=== PATIENT | female | born 1950 | race Caucasian/White ===

== ENCOUNTER 2020-06-16 18:17 | Emergency (ER) | payer MEDICARE ==
[2020-06-16 18:42] VITALS: RESP 18; TEMP 98.3
[2020-06-16] MEDS ORDERED: ACETAMINOPHEN TAB 500 MG TAB PO STA (19:29)
[2020-06-16] MEDS ORDERED: SODIUM CHLORIDE 0.9% 1,000 ML IV ONE (19:29)
--- NOTE | 2020-06-16 19:57 | ED ---
General Adult HPI - General Source: patient Mode of arrival: wheelchair Limitations: physical limitation <Lenka He - Last Filed: 06/17/20 01:59> <Karli Kennedy - Last Filed: 06/17/20 15:57> - General Chief complaint: Skin/Abscess/Foreign Body Stated complaint: Swollen face Time Seen by Provider: 06/16/20 19:02 - History of Present Illness Initial comments: 69-year-old female patient presents to the emergency department today for evaluation of facial swelling and headache. Patient states that she woke this morning and had to pry her eyes open. States that her eyes were swollen shut. She states that she is having some discomfort over the nose and that is reporting a headache. Patient states that the headache feels as though she struck her head on the corner of a cupboard, but she denies injury. Denies any blurred or double vision. Patient states that for the last couple of days she has been feeling unwell with symptoms including chills, nausea, and a couple episodes of diarrhea. She denies any documented fevers. Denies history of similar symptoms. Denies any new exposures. Denies taking any medication for her symptoms. Patient denies any recent rash, cough, shortness of breath, chest pain, abdominal pain, vomiting, constipation, back pain, numbness, tingling, dizziness, weakness, hematuria, dysuria, urinary urgency, urinary frequency, or any other complaints. (Lenka He) - Related Data Previous Rx's Medication Instructions Recorded Cephalexin [Keflex] 500 mg PO Q6HR #40 cap 06/16/20 Cephalexin [Keflex] 500 mg PO Q6HR #40 cap 06/16/20 Famotidine [Pepcid] 20 mg PO DAILY #5 tablet 06/16/20 Allergies Allergy/AdvReac Type Severity Reaction Status Date / Time No Known Allergies Allergy Verified 06/16/20 19:52 Review of Systems ROS Other: All systems not noted in ROS Statement are negative. <Lenka He - Last Filed: 06/17/20 01:59> ROS Other: All systems not noted in ROS Statement are negative. <Karli Kennedy - Last Filed: 06/17/20 15:57> ROS Statement: Those systems with pertinent positive or pertinent negative responses have been documented in the HPI. Past Medical History Past Medical History: Coronary Artery Disease (CAD), Hypertension, Thyroid Disorder History of Any Multi-Drug Resistant Organisms: None Reported Past Surgical History: Section Past Psychological History: Depression Smoking Status: Current every day smoker Past Alcohol Use History: None Reported Past Drug Use History: None Reported <Lenka He - Last Filed: 06/17/20 01:59> General Exam Limitations: physical limitation General appearance: alert, in no apparent distress, other (This is a well- developed, well-nourished adult female patient in no acute distress. Vital signs upon presentation are temperature 99.8F oral, pulse 98, respirations 18, blood pressure 119/84, pulse ox 95% on room air.) Eye exam: Present: PERRL, EOMI, periorbital swelling (Bilateral), other (There is bilateral periorbital edema with overlying erythema. There is no conjunctival injection or eye drainage noted. No pain with extraocular movements.). Absent: normal appearance, scleral icterus, conjunctival injection ENT exam: Present: normal oropharynx, mucous membranes moist, TM's normal bilaterally, other (Patient has swelling overlying the nose, there is tenderness especially over the nasal bone. No nasal drainage or congestion noted.). Absent: normal exam Respiratory exam: Present: normal lung sounds bilaterally. Absent: respiratory distress, wheezes, rales, rhonchi, stridor Cardiovascular Exam: Present: regular rate, normal rhythm, normal heart sounds. Absent: systolic murmur, diastolic murmur, rubs, gallop, clicks Neurological exam: Present: alert, oriented X3, CN II-XII intact Psychiatric exam: Present: normal affect, normal mood Skin exam: Present: warm, dry, intact, normal color. Absent: rash <Lenka He - Last Filed: 06/17/20 01:59> Course Vital Signs 06/16/20 06/16/20 06/16/20 18:37 21:24 22:14 Temperature 98.3 F 98.3 F Pulse Rate 98 86 86 Respiratory 18 18 18 Rate Blood Pressure 119/84 142/60 142/60 O2 Sat by Pulse 95 97 97 Oximetry Medical Decision Making - Lab Data Result diagrams: 06/16/20 20:05 06/16/20 20:05 - Radiology Data Radiology results: report reviewed, image reviewed <Lenka He - Last Filed: 06/17/20 01:59> - Lab Data Result diagrams: 06/16/20 20:05 06/16/20 20:05 <Karli Kennedy - Last Filed: 06/17/20 15:57> - Medical Decision Making 69-year-old female patient presents to the emergency department today for evaluation of bilateral periorbital swelling and headache. Patient did have temperature elevated at 99.8F oral. My attending Dr. Kennedy was in to evaluate the patient, we did discuss and agree upon diagnostic imaging. Labs reviewed and did reveal mildly elevated white blood cell count. Remainder of labs are unremarkable. CT brain and sinuses was obtained and was negative for any acute abnormalities. We will treat patient with antibiotics for possible preseptal cellulitis we will also treat with antihistamines for possible ALLERGIC swelling. She is instructed to follow-up with her primary care physician for recheck tomorrow. Return parameters were discussed in detail. She verbalizes understanding and agrees with this plan. (Lenka He) I was available for consultation in the emergency department. The history and physical exam were done by the midlevel provider. I was consulted for this patients care. I reviewed the case with the midlevel provider and based on their presentation of the patient, I agree with the assessment, medical decision making and plan of care as documented. I evaluated the patient myself. Imaging was recommended as patient complains of nasal pain and swelling. Chart was dictated using [employer] dictation software. Attempts were made to correct any dictation errors however some typographical errors may persist. Patient was seen during a national state of emergency due to the Covid-19 pandemic. (Karli Kennedy) - Lab Data Lab Results 06/16/20 06/16/20 06/16/20 Range/Units 20:05 20:05 20:05 WBC 10.8 H (3.8-10.6) k/uL RBC 5.32 (3.80-5.40) m/uL Hgb 15.6 (11.4-16.0) gm/dL Hct 47.7 H (34.0-46.0) % MCV 89.6 (80.0-100.0) fL MCH 29.3 (25.0-35.0) pg MCHC 32.7 (31.0-37.0) g/dL RDW 12.8 (11.5-15.5) % Plt Count 148 L (150-450) k/uL Neutrophils % 66 % Lymphocytes % 19 % Monocytes % 10 % Eosinophils % 1 % Basophils % 1 % Neutrophils # 7.1 (1.3-7.7) k/uL Lymphocytes # 2.0 (1.0-4.8) k/uL Monocytes # 1.0 (0-1.0) k/uL Eosinophils # 0.1 (0-0.7) k/uL Basophils # 0.2 (0-0.2) k/uL Sodium 136 L (137-145) mmol/L Potassium 4.4 (3.5-5.1) mmol/L Chloride 101 (98-107) mmol/L Carbon Dioxide 28 (22-30) mmol/L Anion Gap 7 mmol/L BUN 10 (7-17) mg/dL Creatinine 0.55 (0.52-1.04) mg/dL Est GFR (CKD-EPI)AfAm >90 (>60 ml/min/1.73 sqM) Est GFR (CKD-EPI)NonAf >90 (>60 ml/min/1.73 sqM) Glucose 99 (74-99) mg/dL Plasma Lactic Acid Mateo 0.9 (0.7-2.0) mmol/L Calcium 9.3 (8.4-10.2) mg/dL Total Bilirubin 1.0 (0.2-1.3) mg/dL AST 20 (14-36) U/L ALT 10 (4-34) U/L Alkaline Phosphatase 56 (38-126) U/L Total Protein 6.9 (6.3-8.2) g/dL Albumin 4.2 (3.5-5.0) g/dL - Radiology Data CT sinus with contrast was obtained. Report is reviewed in its entirety. Impression by Dr. Chanel shows minimal right-sided soft tissue swelling. Otherwise negative exam. Normal sinuses. CT brain without contrast was obtained. Report was reviewed in its entirety. Impression by Dr. Chanel shows negative unenhanced head computed tomography scan. (Lenka He) Disposition Is patient prescribed a controlled substance at d/c from ED?: No Time of Disposition: 21:53 <Lenka He - Last Filed: 06/17/20 01:59> <Karli Kennedy - Last Filed: 06/17/20 15:57> Clinical Impression: Preseptal cellulitis Disposition: HOME SELF-CARE Condition: Good Instructions (If sedation given, give patient instructions): Cellulitis (ED), Periorbital Cellulitis in Adults (ED) Additional Instructions: Complete antibiotic prescription in full. Follow up with your primary care physician for recheck in 1-2 days. Return to the emergency department for any new, worsening, or concerning symptoms. Prescriptions: Cephalexin [Keflex] 500 mg PO Q6HR #40 cap Cephalexin [Keflex] 500 mg PO Q6HR #40 cap Famotidine [Pepcid] 20 mg PO DAILY #5 tablet Referrals: Eugenia Jason MD [Primary Care Provider] - 1-2 days
[2020-06-16 20:19] LABS: Basophils # (A) 0.2 k/uL (0-0.2); Basophils % (A) 1 %; Eosinophils # (A) 0.1 k/uL (0-0.7); Eosinophils % (A) 1 %; HCT 47.7 % (34.0-46.0); HGB 15.6 gm/dL (11.4-16.0); Lymphocytes % (A) 19 %; MCH 29.3 pg (25.0-35.0); MCHC 32.7 g/dL (31.0-37.0); MCV 89.6 fL (80.0-100.0); Mean Platelet Volume 8.7; Monocytes % (A) 10 %; Neutrophils # (A) 7.1 k/uL (1.3-7.7); Neutrophils % (A) 66 %; Platelet Count 148 k/uL (150-450); RBC 5.32 m/uL (3.80-5.40); RDW 12.8 % (11.5-15.5); WBC 10.8 k/uL (3.8-10.6)
[2020-06-16 20:31] LABS: ALT 10 U/L (4-34); AST 20 U/L (14-36); African American GFR (CKD) >90 (>60 ml/min/1.73 sqM); Albumin 4.2 g/dL (3.5-5.0); Alkaline Phosphatase 56 U/L (38-126); Anion Gap 7 mmol/L; Blood Urea Nitrogen 10 mg/dL (7-17); Calcium 9.3 mg/dL (8.4-10.2); Carbon Dioxide 28 mmol/L (22-30); Chloride 101 mmol/L (98-107); Glucose 99 mg/dL (74-99); Non-African American GFR(CKD) >90 (>60 ml/min/1.73 sqM); Potassium 4.4 mmol/L (3.5-5.1); Sodium 136 mmol/L (137-145); Total Protein 6.9 g/dL (6.3-8.2)
--- NOTE | 2020-06-16 21:09 | CT ---
EXAMINATION TYPE: CT brain wo con DATE OF EXAM: 06/16/2020 COMPARISON: None HISTORY: Headache and right sided facial swelling. CT DLP: 1151.4 mGycm Automated exposure control for dose reduction was used. Ventricles have normal size. There is no mass effect nor midline shift. There is no sign of intracran ial hemorrhage. There is no evidence of cerebral edema. Calvarium is intact. IMPRESSION: Negative unenhanced head CT scan.
--- NOTE | 2020-06-16 21:12 | CT ---
EXAMINATION TYPE: CT sinus w con DATE OF EXAM: 06/16/2020 COMPARISON: None HISTORY: Headache and right sided facial swelling. CT DLP: 373.9 mGycm Automated exposure control for dose reduction was used. CONTRAST: Performed with IV Contrast, patient injected with 100ml mL of Isovue 300. The orbital margins are intact. There is no evidence of retro-orbital mass. Zygomatic arches appear n ormal. Nasal bone is intact. There is no evidence of a blowout fracture. There is bilateral patency o f the ostiomeatal complex. There is fairly normal aeration of the paranasal sinuses. There is normal aeration of the mastoid sinuses. Maxilla is intact. There is no pathologic enhancement. There is mini mal right lateral periorbital soft tissue swelling. IMPRESSION: Minimal right-sided soft tissue swelling. Otherwise negative exam. Normal sinuses.
[2020-06-16 21:26] VITALS: BP 142/60; PULSE 86
[2020-06-16] MEDS ORDERED: CEPHALEXIN 500MG STARTER PACK 4 CAP BTL PO STA (21:50)
[2020-06-16] MEDS ORDERED: FAMOTIDINE 20 MG TAB PO STA (21:50)
== END 2020-06-16 22:15 | disposition home or self-care (01) ==
LOC: EC 18:17
DX: L03.213 Periorbital cellulitis (principal); F17.200 Nicotine dependence, unspecified, uncomplicated; R51 Headache
CPT/HCPCS: 36415; 80053; 83605; 85025; 87040; 70450; 70487; 99284; 96360; 96361; Q9967

== ENCOUNTER → 2023-04-16 | Outpatient (CLI) | payer MEDICARE ==
--- NOTE | 2023-04-17 08:18 | US ---
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 Pain with R>L. Thickened toe nails. Hair loss on feet. History of: Smoker: Current Smoker Hypertension: Takes medication Diabetic: No Hyperlipidemia: Yes TIA/CVA: No Previous Vascular Surgery: No CAD: No OR: No Vascular Ulcers: No Claudication: No Gangrene: No Doppler Waveforms: Right: Multiphasic Left: Multiphasic Right Brachial Pressure: 134 Left Brachial Pressure: 126 Ankle-Brachial Indices: Right: 1.0 Left: 1.0 Toe Brachial Indices: Right: 0.5 Left: 0.5 IMPRESSION: Borderline SUJATA indices and abnormal TBI indices suggestive of mild peripheral atherosclerotic disease
== END | disposition home or self-care (01) ==
LOC: RADUSWWP 14:27
PROVIDERS: ATTEND Family Medicine
DX: I70.213 Atherosclerosis of native arteries of extremities with intermittent claudication, bilateral legs (principal)
CPT/HCPCS: 93922

== ENCOUNTER → 2023-12-11 | Outpatient (CLI) | payer MEDICARE ==
--- NOTE | 2023-12-11 16:12 | US ---
EXAMINATION TYPE: US arterial LE multi level DATE OF EXAM: 12/11/2023 2:20 PM CLINICAL INDICATION: Female, 73 years old with history of I87.2 VENOUS INSUFFICIENCY (CHRONIC) (PERIP HERAL); History of: Smoker: Current Hypertension: Yes Diabetic: No Hyperlipidemia: Yes TIA/CVA: No Previous Vascular Surgery: NO CAD: No HI: No Vascular Ulcers: No Claudication: Yes Gangrene: No Right Brachial Pressure: 111 Left Brachial Pressure: 119 Ankle-Brachial Indices: Right: 0.85 Left: 0.97 Patient unable to straighten right leg due to knee and hip pain. Recordings may be inaccurate within the right leg due to non-proper positioning. IMPRESSION: Similar borderline SUJATA indices and abnormal TBI indices suggestive of mild peripheral ath erosclerotic disease
== END | disposition home or self-care (01) ==
LOC: RADUSWWP 13:43
PROVIDERS: ATTEND Family Medicine
DX: I87.2 Venous insufficiency (chronic) (peripheral) (principal)
CPT/HCPCS: 93923

== ENCOUNTER 2025-01-16 16:32 | Observation (INO) | payer MEDICARE ==
--- NOTE | 2025-01-16 16:58 | ED ---
General Adult HPI - General Chief complaint: Weakness Stated complaint: Possible UTI Time Seen by Provider: 01/16/25 16:35 Source: patient, EMS Mode of arrival: EMS Limitations: no limitations - History of Present Illness Initial comments: This patient is 74-year-old woman brought to have evaluation of weakness and confusion. The patient states that she had been well yesterday. She states that starting today she just felt weak and tired. She wanted to go to the bathroom but she states that her legs were too weak to support her. She notes that it was both legs. She denies focal weakness. She was talking to her brother who had her call her son and 1 family came and checked on her they called EMS. Patient was reportedly well when she got up this morning around 8 AM. She is not able to characterize any other symptoms. She states that she feels confused. She has not noted fevers. She denies chest pain and dyspnea. She does have occasional cough but that is chronic for her -: hour(s) Severity scale (1-10): 0 Consistency: constant Improves with: none Worsens with: none Associated Symptoms: confusion, weakness Treatments Prior to Arrival: none - Related Data Home Medications Medication Instructions Recorded Confirmed Albuterol Inhaler [Ventolin Hfa 2 puff INHALATION RT-QID PRN 01/16/25 01/16/25 Inhaler] Albuterol Nebulized [Ventolin 2.5 mg INHALATION RT-QID PRN 01/16/25 01/16/25 Nebulized] Escitalopram [Lexapro] 5 mg PO DAILY 01/16/25 01/16/25 Fluticasone/Umeclidin/Vilanter 1 puff INHALATION RT-DAILY 01/16/25 01/16/25 [Trelegy Ellipta 200-62.5-25] Levothyroxine Sodium [Synthroid] 150 mcg PO SUMOTUTHFRSA 01/16/25 01/16/25 Metoprolol Succinate (ER) [Toprol 25 mg PO DAILY 01/16/25 01/16/25 Xl] Multivitamins, Thera [Multivitamin 1 tab PO DAILY 01/16/25 01/16/25 (formulary)] Pravastatin Sodium [Pravachol] 80 mg PO DAILY 01/16/25 01/16/25 Allergies Allergy/AdvReac Type Severity Reaction Status Date / Time No Known Allergies Allergy Verified 01/16/25 20:09 Review of Systems ROS Statement: Those systems with pertinent positive or pertinent negative responses have been documented in the HPI. ROS Other: All systems not noted in ROS Statement are negative. Constitutional: Reports: weakness. Denies: fever, chills Eyes: Denies: eye pain, vision change ENT: Denies: congestion Respiratory: Denies: cough, dyspnea, hemoptysis Cardiovascular: Denies: chest pain, palpitations, orthopnea, edema, syncope Gastrointestinal: Denies: abdominal pain, nausea, vomiting, diarrhea Genitourinary: Denies: dysuria, hematuria Musculoskeletal: Denies: back pain Skin: Denies: as per HPI Neurological: Reports: confusion. Denies: headache, weakness, numbness Psychiatric: Reports: anxiety Past Medical History Past Medical History: Coronary Artery Disease (CAD), Hypertension, Thyroid Disorder History of Any Multi-Drug Resistant Organisms: None Reported Past Surgical History: Unable to Obtain, Section Past Psychological History: Depression Smoking Status: Current every day smoker Past Alcohol Use History: None Reported Past Drug Use History: None Reported General Exam Limitations: no limitations General appearance: alert, in no apparent distress, anxious Head exam: Present: atraumatic, normocephalic Eye exam: Present: normal appearance. Absent: scleral icterus, conjunctival injection ENT exam: Present: mucous membranes dry Neck exam: Present: normal inspection Respiratory exam: Present: wheezes, prolonged expiratory. Absent: rales, rhonchi, stridor, accessory muscle use Cardiovascular Exam: Present: regular rate, normal rhythm, normal heart sounds. Absent: systolic murmur, diastolic murmur, rubs, gallop GI/Abdominal exam: Present: soft. Absent: distended, tenderness, guarding, rebound, rigid, mass Extremities exam: Present: normal inspection, normal capillary refill. Absent: pedal edema, calf tenderness Back exam: Present: normal inspection. Absent: CVA tenderness (R), CVA tenderness (L) Neurological exam: Present: alert, CN II-XII intact. Absent: oriented X3 (Patient is disoriented to date), motor sensory deficit Skin exam: Present: warm, dry, intact, normal color. Absent: rash Course Vital Signs 01/16/25 01/16/25 16:35 19:16 Temperature 99.4 F Pulse Rate 100 86 Respiratory 20 18 Rate Blood Pressure 127/82 110/70 O2 Sat by Pulse 92 L 97 Oximetry EKG Findings - EKG Comments: EKG Findings:: Old septal infarct based on Q waves leads V1 V2. - EKG Results: EKG: interpreted by HOWIE, sinus rhythm (Rate 190 bpm), normal axis, normal ST/T Medical Decision Making - Lab Data Result diagrams: 01/16/25 16:53 01/16/25 16:53 Lab Results 01/16/25 01/16/25 01/16/25 Range/Units 16:53 16:53 16:53 WBC 11.42 H (4.50-10.00) 10*3/uL RBC 4.87 (4.10-5.20) 10*6/uL Hgb 15.1 H (12.0-15.0) g/dL Hct 44.8 (37.2-46.3) % MCV 92.0 (80.0-97.0) fL MCH 31.0 (27.0-32.0) pg MCHC 33.7 (32.0-37.0) g/dL Plt Count 149 (140-440) 10*3/uL MPV 11.2 (9.5-12.2) fL Immature Gran % (Auto) 0.4 % Neutrophils % 89.2 % Lymphocytes % 4.4 % Monocytes % 5.2 % Eosinophils % 0.4 % Basophils % 0.4 % Immature Gran # 0.05 H (0.00-0.04) 10*3/uL Neutrophils # 10.20 H (1.80-7.70) 10*3/uL Lymphocytes # 0.50 L (0.90-5.00) 10*3/uL Monocytes # 0.59 (0.20-1.00) 10*3/uL Eosinophils # 0.04 (0.04-0.35) 10*3/uL Basophils # 0.04 (0.00-0.10) 10*3/uL PT 10.3 (10.0-12.5) sec INR 0.9 (<1.2) APTT 20.7 L (22.0-30.0) sec VBG pH (7.31-7.41) VBG pCO2 (37-51) mmHg VBG HCO3 (24-28) mmol/L Sodium (137-145) mmol/L Potassium (3.5-5.1) mmol/L Chloride (98-107) mmol/L Carbon Dioxide (22-30) mmol/L Anion Gap mmol/L BUN (7-17) mg/dL Creatinine (0.52-1.04) mg/dL Est GFR (CKD-EPI)AfAm (>60 ml/min/1.73 sqM) Est GFR (CKD-EPI)NonAf (>60 ml/min/1.73 sqM) Glucose (74-99) mg/dL Plasma Lactic Acid Mateo (0.7-2.0) mmol/L Calcium (8.4-10.2) mg/dL Magnesium (1.6-2.3) mg/dL Total Bilirubin (0.2-1.3) mg/dL AST (14-36) U/L ALT (4-34) U/L Alkaline Phosphatase (38-126) U/L Troponin I (0.000-0.034) ng/mL Total Protein (6.3-8.2) g/dL Albumin (3.5-5.0) g/dL TSH (0.465-4.680) mIU/L Urine Color Light Yellow Urine Appearance Clear (Clear) Urine pH 7.0 (5.0-8.0) Ur Specific Ord 1.013 (1.001-1.035) Urine Protein Negative (Negative) Urine Glucose (UA) Negative (Negative) Urine Ketones Trace H (Negative) Urine Blood Negative (Negative) Urine Nitrite Positive H (Negative) Urine Bilirubin Negative (Negative) Urine Urobilinogen <2.0 (<2.0) mg/dL Ur Leukocyte Esterase Large H (Negative) Urine RBC <1 (0-5) /hpf Urine WBC 35 H (0-5) /hpf Ur Squamous Epith Cells <1 (0-4) /hpf Urine Bacteria Few H (None) /hpf Urine Mucus Rare H (None) /hpf 01/16/25 01/16/25 01/16/25 Range/Units 16:53 16:53 16:53 WBC (4.50-10.00) 10*3/uL RBC (4.10-5.20) 10*6/uL Hgb (12.0-15.0) g/dL Hct (37.2-46.3) % MCV (80.0-97.0) fL MCH (27.0-32.0) pg MCHC (32.0-37.0) g/dL Plt Count (140-440) 10*3/uL MPV (9.5-12.2) fL Immature Gran % (Auto) % Neutrophils % % Lymphocytes % % Monocytes % % Eosinophils % % Basophils % % Immature Gran # (0.00-0.04) 10*3/uL Neutrophils # (1.80-7.70) 10*3/uL Lymphocytes # (0.90-5.00) 10*3/uL Monocytes # (0.20-1.00) 10*3/uL Eosinophils # (0.04-0.35) 10*3/uL Basophils # (0.00-0.10) 10*3/uL PT (10.0-12.5) sec INR (<1.2) APTT (22.0-30.0) sec VBG pH (7.31-7.41) VBG pCO2 (37-51) mmHg VBG HCO3 (24-28) mmol/L Sodium 136 L (137-145) mmol/L Potassium 4.4 (3.5-5.1) mmol/L Chloride 99 (98-107) mmol/L Carbon Dioxide 28 (22-30) mmol/L Anion Gap 9 mmol/L BUN 11 (7-17) mg/dL Creatinine 0.51 L (0.52-1.04) mg/dL Est GFR (CKD-EPI)AfAm >90 (>60 ml/min/1.73 sqM) Est GFR (CKD-EPI)NonAf >90 (>60 ml/min/1.73 sqM) Glucose 82 (74-99) mg/dL Plasma Lactic Acid Mateo 1.2 (0.7-2.0) mmol/L Calcium 9.4 (8.4-10.2) mg/dL Magnesium 1.7 (1.6-2.3) mg/dL Total Bilirubin 1.1 (0.2-1.3) mg/dL AST 31 (14-36) U/L ALT 17 (4-34) U/L Alkaline Phosphatase 43 (38-126) U/L Troponin I <0.012 (0.000-0.034) ng/mL Total Protein 7.0 (6.3-8.2) g/dL Albumin 4.4 (3.5-5.0) g/dL TSH 1.450 (0.465-4.680) mIU/L Urine Color Urine Appearance (Clear) Urine pH (5.0-8.0) Ur Specific Ord (1.001-1.035) Urine Protein (Negative) Urine Glucose (UA) (Negative) Urine Ketones (Negative) Urine Blood (Negative) Urine Nitrite (Negative) Urine Bilirubin (Negative) Urine Urobilinogen (<2.0) mg/dL Ur Leukocyte Esterase (Negative) Urine RBC (0-5) /hpf Urine WBC (0-5) /hpf Ur Squamous Epith Cells (0-4) /hpf Urine Bacteria (None) /hpf Urine Mucus (None) /hpf 01/16/25 Range/Units 18:50 WBC (4.50-10.00) 10*3/uL RBC (4.10-5.20) 10*6/uL Hgb (12.0-15.0) g/dL Hct (37.2-46.3) % MCV (80.0-97.0) fL MCH (27.0-32.0) pg MCHC (32.0-37.0) g/dL Plt Count (140-440) 10*3/uL MPV (9.5-12.2) fL Immature Gran % (Auto) % Neutrophils % % Lymphocytes % % Monocytes % % Eosinophils % % Basophils % % Immature Gran # (0.00-0.04) 10*3/uL Neutrophils # (1.80-7.70) 10*3/uL Lymphocytes # (0.90-5.00) 10*3/uL Monocytes # (0.20-1.00) 10*3/uL Eosinophils # (0.04-0.35) 10*3/uL Basophils # (0.00-0.10) 10*3/uL PT (10.0-12.5) sec INR (<1.2) APTT (22.0-30.0) sec VBG pH 7.43 H (7.31-7.41) VBG pCO2 43 (37-51) mmHg VBG HCO3 28 (24-28) mmol/L Sodium (137-145) mmol/L Potassium (3.5-5.1) mmol/L Chloride (98-107) mmol/L Carbon Dioxide (22-30) mmol/L Anion Gap mmol/L BUN (7-17) mg/dL Creatinine (0.52-1.04) mg/dL Est GFR (CKD-EPI)AfAm (>60 ml/min/1.73 sqM) Est GFR (CKD-EPI)NonAf (>60 ml/min/1.73 sqM) Glucose (74-99) mg/dL Plasma Lactic Acid Mateo (0.7-2.0) mmol/L Calcium (8.4-10.2) mg/dL Magnesium (1.6-2.3) mg/dL Total Bilirubin (0.2-1.3) mg/dL AST (14-36) U/L ALT (4-34) U/L Alkaline Phosphatase (38-126) U/L Troponin I (0.000-0.034) ng/mL Total Protein (6.3-8.2) g/dL Albumin (3.5-5.0) g/dL TSH (0.465-4.680) mIU/L Urine Color Urine Appearance (Clear) Urine pH (5.0-8.0) Ur Specific Ord (1.001-1.035) Urine Protein (Negative) Urine Glucose (UA) (Negative) Urine Ketones (Negative) Urine Blood (Negative) Urine Nitrite (Negative) Urine Bilirubin (Negative) Urine Urobilinogen (<2.0) mg/dL Ur Leukocyte Esterase (Negative) Urine RBC (0-5) /hpf Urine WBC (0-5) /hpf Ur Squamous Epith Cells (0-4) /hpf Urine Bacteria (None) /hpf Urine Mucus (None) /hpf Disposition Clinical Impression: UTI (urinary tract infection), Generalized weakness Disposition: ADMITTED IP TO THIS HOSP Condition: Fair Is patient prescribed a controlled substance at d/c from ED?: No Referrals: Eugenia Jason MD [Primary Care Provider] - 1-2 days
[2025-01-16 17:07] LABS: Basophils # (A) 0.04 10*3/uL (0.00-0.10); Basophils % (A) 0.4 %; Eosinophils # (A) 0.04 10*3/uL (0.04-0.35); Eosinophils % (A) 0.4 %; HCT 44.8 % (37.2-46.3); HGB 15.1 g/dL (12.0-15.0); Lymphocytes % (A) 4.4 %; MCHC 33.7 g/dL (32.0-37.0); Mean Platelet Volume 11.2 fL (9.5-12.2); Monocytes # (A) 0.59 10*3/uL (0.20-1.00); Monocytes % (A) 5.2 %; Neutrophils % (A) 89.2 %; Platelet Count 149 10*3/uL (140-440); RBC 4.87 10*6/uL (4.10-5.20); RDW 13.1 % (11.5-14.5); WBC 11.42 10*3/uL (4.50-10.00)
--- NOTE | 2025-01-16 17:19 | XR ---
EXAMINATION TYPE: XR chest 2V DATE OF EXAM: 01/16/2025 5:13 PM COMPARISON: None. CLINICAL INDICATION: Female, 74 years old with history of Weakness; [facility] TECHNIQUE: XR chest 2V Frontal and lateral views of the chest. FINDINGS: Lungs/Pleura: There is no evidence of pleural effusion, focal consolidation, or pneumothorax. Pulmonary vascularity: Unremarkable. Heart/mediastinum: Cardiomediastinal silhouette is unremarkable. Musculoskeletal: No acute osseous pathology. Osseous structures appear demineralized. Other findings: None IMPRESSION: No acute cardiopulmonary disease/process. [facility], , 01/16/2025 5:16 PM
[2025-01-16 17:30] LABS: INR 0.9 (<1.2); Prothrombin Time 10.3 sec (10.0-12.5)
[2025-01-16 17:32] LABS: Partial Thromboplastin Time 20.7 sec (22.0-30.0)
[2025-01-16 17:34] LABS: ALT 17 U/L (4-34); African American GFR (CKD) >90 (>60 ml/min/1.73 sqM); Albumin 4.4 g/dL (3.5-5.0); Anion Gap 9 mmol/L; Blood Urea Nitrogen 11 mg/dL (7-17); Calcium 9.4 mg/dL (8.4-10.2); Carbon Dioxide 28 mmol/L (22-30); Chloride 99 mmol/L (98-107); Glucose 82 mg/dL (74-99); Non-African American GFR(CKD) >90 (>60 ml/min/1.73 sqM); Sodium 136 mmol/L (137-145); Total Bilirubin 1.1 mg/dL (0.2-1.3)
--- NOTE | 2025-01-16 17:34 | CT ---
EXAMINATION TYPE: CT brain wo con DATE OF EXAM: 01/16/2025 5:23 PM COMPARISON: Prior CT head study 06/16/2020.. CLINICAL INDICATION: Female, 74 years old with history of weakness, weakness, ams TECHNIQUE: Brain: Axial CT images of the brain were obtained with coronal and sagittal reformats created and rev iewed. Contrast used: None. Oral contrast used: None. CT DLP: 1168.5 mGycm, Automated exposure control for dose reduction was used. FINDINGS: Brain: Extra-axial spaces: No abnormal extra-axial fluid collections. Ventricular system: Dilatation in proportion to cerebral atrophy. Cerebral parenchyma: No acute intraparenchymal hemorrhage or mass effect. The muñoz-white junction is well differentiated. Scattered hypoattenuating areas are seen within the white matter. Cerebellum: Unremarkable. Mass effect: No evidence of midline shift. Intracranial vasculature: Atherosclerotic calcifications of the intracranial vessels. Soft tissues: Normal. Calvarium/osseous structures: No depressed skull fracture. Paranasal sinuses and mastoid air cells: Mild scattered paranasal sinus disease. Visualized orbits: Orbital contents are intact. IMPRESSION: No acute intracranial process. [facility], , 01/16/2025 5:31 PM
[2025-01-16 17:37] LABS: AST 31 U/L (14-36); Magnesium 1.7 mg/dL (1.6-2.3); Potassium 4.4 mmol/L (3.5-5.1)
[2025-01-16 17:38] LABS: Alkaline Phosphatase 43 U/L (38-126)
[2025-01-16 18:57] LABS: VBG PH 7.43 (7.31-7.41)
[2025-01-16 19:25] LABS: Appearance,Urine Clear (Clear); Bacteria,Urine Few /hpf; Bilirubin,Urine Negative (Negative); Blood,Urine Negative (Negative); Color,Urine Light Yellow; Glucose,Urine (UA) Negative (Negative); Ketones,Urine Trace (Negative); Leukocyte Esterase,Urine Large (Negative); Mucus,Urine Rare /hpf; Nitrite,Urine Positive (Negative); Protein,Urine Negative (Negative); RBC,Urine <1 /hpf (0-5); Specific Gravity,Urine 1.013 (1.001-1.035); Squamous Epithelial Cell,Urine <1 /hpf (0-4); Urobilinogen,Urine <2.0 mg/dL (<2.0); WBC,Urine 35 /hpf (0-5)
[2025-01-16] MEDS ORDERED: NALOXONE 0.4 MG/ML 1 ML VIAL IV PRN (19:59)
[2025-01-16] MEDS ORDERED: ACETAMINOPHEN TAB 325 MG TAB PO PRN (19:59)
[2025-01-16] MEDS: SODIUM CHLORIDE 0.9% 1,000 ML IV SCH (21:37)
[2025-01-16] MEDS: FAMOTIDINE 20 MG TAB PO SCH (21:37)
[2025-01-16] MEDS ORDERED: ALBUTEROL NEBULIZED 2.5 MG/3 ML INHALATION PRN ×2 (23:09)
[2025-01-17] MEDS: LEVOTHYROXINE 50 MCG TAB PO SCH (06:09)
[2025-01-17] MEDS: TIOTROPIUM 2.5 MCG INHALER INHALATION SCH (07:54)
[2025-01-17] MEDS: SYMBICORT 160-4.5 MCG INHALER INHALATION SCH (07:54)
[2025-01-17] MEDS: ESCITALOPRAM 5 MG TAB PO SCH (09:23)
[2025-01-17] MEDS: METOPROLOL SUCCINATE (ER) 25 MG TAB.ER.24H PO SCH (09:24)
[2025-01-17] MEDS: PRAVASTATIN SODIUM 80 MG TAB PO SCH (09:24)
[2025-01-17] MEDS: MULTIVITAMINS, THERA 1 EACH TAB PO SCH (09:24)
[2025-01-17] MEDS: NICOTINE 21MG/24HR PATCH TRANSDERM SCH (09:52)
--- NOTE | 2025-01-17 10:26 | P.HPIM ---
History of Present Illness H&P Date: 01/17/25 This is a 74-year-old female patient of Dr. Degroot who presented with complaints of generalized weakness and inability to ambulate. Patient reports the symptoms started yesterday. Patient apparently had some confusion also. Patient lives independently. Patient has a past medical history of CAD, hypertension, thyroid disorder, depression and current everyday smoker. Head CT completed showing no acute intracranial process. Chest x-ray completed showing no acute cardiopulmonary process. 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 UA positive for urinary tract infection. WBC 11.42 hemoglobin 15.1 creatinine 0.51 bun 11 troponin negative current vital signs temp 98.4, heart 69, respiratory rate 18, blood pressure 129/77 with a pulse ox of 98% on 2 L. At this time patient will be admitted patient started on Rocephin and normal saline repeat labs have been ordered. Patient is currently sitting in chair. Patient is adamant she wants to be discharged home patient remains very weak needs graduate assistant athletic trainer family is at bedside. Patient reports she still feels weak denies any chest pain or shortness of breath. Denies any nausea vomiting or diarrhea. Denies any urinary burning or frequency Review of Systems Please refer to HPI otherwise unremarkable Past Medical History Past Medical History: Coronary Artery Disease (CAD), Hypertension, Thyroid Disorder History of Any Multi-Drug Resistant Organisms: None Reported Past Surgical History: Unable to Obtain, Section Past Psychological History: Depression Smoking Status: Current every day smoker Past Alcohol Use History: None Reported Past Drug Use History: None Reported Medications and Allergies Home Medications Medication Instructions Recorded Confirmed Type Albuterol Inhaler [Ventolin Hfa 2 puff INHALATION RT-QID PRN 01/16/25 01/16/25 History Inhaler] Albuterol Nebulized [Ventolin 2.5 mg INHALATION RT-QID PRN 01/16/25 01/16/25 History Nebulized] Escitalopram [Lexapro] 5 mg PO DAILY 01/16/25 01/16/25 History Fluticasone/Umeclidin/Vilanter 1 puff INHALATION RT-DAILY 01/16/25 01/16/25 History [Trelegy Ellipta 200-62.5-25] Levothyroxine Sodium [Synthroid] 150 mcg PO SUMOTUTHFRSA 01/16/25 01/16/25 History Metoprolol Succinate (ER) [Toprol 25 mg PO DAILY 01/16/25 01/16/25 History Xl] Multivitamins, Thera [Multivitamin 1 tab PO DAILY 01/16/25 01/16/25 History (formulary)] Pravastatin Sodium [Pravachol] 80 mg PO DAILY 01/16/25 01/16/25 History Allergies Allergy/AdvReac Type Severity Reaction Status Date / Time No Known Allergies Allergy Verified 01/16/25 20:09 Physical Exam Vitals: Vital Signs Temp Pulse Pulse Resp BP BP Pulse Ox 01/17/25 07:58 97 01/17/25 07:00 98.4 F 69 18 91/49 98 01/17/25 01:38 97.9 F 79 18 129/77 92 L 01/16/25 22:22 98.2 F 80 18 124/78 92 L 01/16/25 22:09 80 18 104/52 97 01/16/25 21:40 80 18 104/52 97 01/16/25 19:16 86 18 110/70 97 01/16/25 16:35 99.4 F 100 20 127/82 92 L Intake and Output 01/16/25 01/17/25 01/17/25 22:59 06:59 14:59 Other: Voiding Method Toilet Toilet Diaper Diaper Incontinent # Voids 2 Weight 63.503 kg Head normocephalic Neck supple Lungs clear to auscultation bilaterally no wheezing or crackles Heart regular rate and rhythm S1-S2, no rub or gallop Abdomen is soft nontender nondistended positive bowel sounds no hepatosplenomegaly Extremities no edema Neuro alert and orientated to 3 Results CBC & Chem 7: 01/16/25 16:53 01/16/25 16:53 Labs: Abnormal Lab Results - Last 24 Hours (Table) 01/16/25 01/16/25 01/16/25 Range/Units 16:53 16:53 16:53 WBC 11.42 H (4.50-10.00) 10*3/uL Hgb 15.1 H (12.0-15.0) g/dL Immature Gran # 0.05 H (0.00-0.04) 10*3/uL Neutrophils # 10.20 H (1.80-7.70) 10*3/uL Lymphocytes # 0.50 L (0.90-5.00) 10*3/uL APTT 20.7 L (22.0-30.0) sec VBG pH (7.31-7.41) Sodium (137-145) mmol/L Creatinine (0.52-1.04) mg/dL Urine Ketones Trace H (Negative) Urine Nitrite Positive H (Negative) Ur Leukocyte Esterase Large H (Negative) Urine WBC 35 H (0-5) /hpf Urine Bacteria Few H (None) /hpf Urine Mucus Rare H (None) /hpf 01/16/25 01/16/25 Range/Units 16:53 18:50 WBC (4.50-10.00) 10*3/uL Hgb (12.0-15.0) g/dL Immature Gran # (0.00-0.04) 10*3/uL Neutrophils # (1.80-7.70) 10*3/uL Lymphocytes # (0.90-5.00) 10*3/uL APTT (22.0-30.0) sec VBG pH 7.43 H (7.31-7.41) Sodium 136 L (137-145) mmol/L Creatinine 0.51 L (0.52-1.04) mg/dL Urine Ketones (Negative) Urine Nitrite (Negative) Ur Leukocyte Esterase (Negative) Urine WBC (0-5) /hpf Urine Bacteria (None) /hpf Urine Mucus (None) /hpf Thrombosis Risk Factor Assmnt - Choose All That Apply Any of the Below Risk Factors Present?: No Other Risk Factors: No Each Risk Factor Represents 2 Points: Age 61-74 years Other congenital or acquired thrombophilia - If yes, enter type in comment: No Thrombosis Risk Factor Assessment Total Risk Factor Score: 2 Thrombosis Risk Factor Assessment Level: Very Low Risk Assessment and Plan Assessment: 1. Generalized weakness 2. Urinary tract infection 3. Ongoing nicotine dependence 4. History of coronary artery disease 5. History of essential hypertension 6. History of hypothyroidism DVT prophylaxis Lovenox. GI prophylaxis Pepcid Continue gentle hydration Rocephin for urinary tract infection Urine culture ordered PT OT and social work services consulted Time with Patient: Greater than 30 (Greater than 60% of the total time spent in counseling and coordination of care)
[2025-01-17] MEDS: LORazepam 0.5 MG TAB PO PRN (12:51)
[2025-01-18 07:11] VITALS: BP 106/70; PULSE 62; RESP 17; TEMP 97.8
[2025-01-18] MEDS: ENOXAPARIN 40 MG/0.4 ML SYRINGE SQ SCH (08:34)
[2025-01-18 09:11] LABS: Basophils # (A) 0.02 X 10*3/uL (0.00-0.10); Basophils % (A) 0.4 %; Eosinophils # (A) 0.32 X 10*3/uL (0.04-0.35); Eosinophils % (A) 5.9 %; HCT 40.3 % (37.2-46.3); HGB 12.6 g/dL (12.0-15.0); Lymphocytes # (A) 1.73 X 10*3/uL (0.90-5.00); Lymphocytes % (A) 31.9 %; MCH 30.3 pg (27.0-32.0); MCHC 31.3 g/dL (32.0-37.0); MCV 96.9 FL (80.0-97.0); Mean Platelet Volume 11.7 FL (9.5-12.2); Monocytes # (A) 0.82 X 10*3/uL (0.20-1.00); Monocytes % (A) 15.1 %; NRBC Per 100 WBC 0 X 10*3/uL (0.00-0.01); Neutrophils # (A) 2.52 X 10*3/uL (1.80-7.70); Neutrophils % (A) 46.5 %; Platelet Count 138 X 10*3/uL (140-440); RBC 4.16 X 10*6/uL (4.10-5.20); RDW 13.3 % (11.5-14.5); WBC 5.42 X 10*3/uL (4.50-10.00)
[2025-01-18 09:15] LABS: ALT 12 U/L (8-44); AST 17 U/L (13-35); Albumin 3.3 g/dL (3.8-4.9); Albumin/Globulin Ratio 1.74 Ratio (1.60-3.17); Alkaline Phosphatase 40 U/L (41-126); Blood Urea Nitrogen 7.5 mg/dL (9.0-27.0); Calcium 8.3 mg/dL (8.7-10.3); Chloride 106 mmol/L (96-109); Globulin 1.9 g/dL (1.6-3.3); Glucose 88 mg/dL (70-110); Potassium 4.1 mmol/L (3.5-5.5); Sodium 140 mmol/L (135-145); Total Bilirubin <0.2 mg/dL (0.3-1.2); Total Protein 5.2 g/dL (6.2-8.2)
[2025-01-18] MEDS ORDERED: ESCITALOPRAM 5 MG TAB PO STA (14:20)
--- NOTE | 2025-01-18 14:24 | P.CN ---
Psychiatric Consult - . Consult date: 01/18/25 Consult:: 01/18/25 13:42 IDENTIFYING DATA: This patient is a 74-year-old female, currently lives alone she is , she has 2 kids she collects Social Security REASON FOR REFERRAL: Psychiatry was consulted for "agitation" HISTORY OF PRESENT ILLNESS: The patient presented to the hospital initially on 01/16 for suppose it weakness in her legs, confusion, she was brought in by [facility]. Patient was found to have a urinary tract infection, started on antibiotics. Patient apparently was agitated with staff on the medical floors. Patient was seen today laying in bed agreeable to speak to song writer. She appeared to be fairly cooperative, was alert and oriented x 3. She did not display any irritability or agitation during conversation. She claims that she was feeling "unwell" before coming into the hospital. Claims that she was having "shakes" and also falling down in her home. Claims that she did not have any flank pain or any urinary changes, was told that she had a urinary tract infection. Claims that this was going on for about 1 or 2 days before she came into the hospital. Claims that she just has mild depression mild anxiety, states that she is currently taking Lexapro 5 mg daily for mood. Claims that her sleep and appetite are fair.. At this time patient denies any suicidal or homical ideations, intent or plan. Patient denies any auditory, visual hallucinations and denies any paranoia or delusions. Patients admits to using no recreational drugs except for cigarettes. PAST PSYCHIATRIC HISTORY: Patient has a a history of depression/anxiety. Patient is currently on Lexapro 5 mg daily, this is prescribed by her primary care doctor. Patient denies any previous psychiatric hospitalizations. Patient denies any psychiatric outpatient follow-up. Patient denies any history of suicide attempts in the past. She denies any access to guns or weapons. Past Medical History: Coronary Artery Disease (CAD), Hypertension, Thyroid Disorder History of Any Multi-Drug Resistant Organisms: None Reported Past Surgical History: Unable to Obtain, Section Past Psychological History: Depression Smoking Status: Current every day smoker Past Alcohol Use History: None Reported Past Drug Use History: None Reported ALLERGIES: as per EMR. CHEMICAL DEPENDENCY HISTORY: as per HPI. FAMILY PSYCHIATRIC/SUBSTANCE USE HISTORY: Denies SOCIAL HISTORY: Patient was born and raised in [facility]. Claims that she was raised [place] over [place] due to her dad's job in the and also driving trucks. 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 Denies any legal history. Claims that she currently lives alone in a small house behind her son's house. She is at this time, she is 2 kids she collect Social Security. MENTAL STATUS EXAM: General Appearance: Patient appears to be have poor dentition, stated age is alert, pleasant, and cooperative. Patient appears to have fair hygiene and grooming wearing hospital gown with fair eye contact. Behavior: Patient is calmly lying in bed without any agitated behavior. Attempts to cooperate Speech: Patient's speech is fluent and nonpressured. Mood/Affect: Patient reports their mood is "just a bit depressed and a bit anxious", affect is congruent improving affect Suicidality/Homicidality: Patient denies having any suicidal or homicidal ideation intent or plan. Perceptions: Patient denies any visual hallucinations and denies any auditory hallucinations Though content/process: There is no evidence of any delusional thought content and thought process is linear and goal-directed. Focused on discharge Memory and concentration: AOX3, grossly intact for the purposes of this session. Can spell "WORLD" backwards Judgment and insight: Fair IMPRESSIONS: Major depressive disorder mild Anxiety disorder unspecified Nicotine dependence Delirium likely secondary to urinary tract infection, resolved PLAN: -At this time patient DOES NOT meet criteria for inpatient psychiatric admissio n. -Delirium precautions recommended with patient including - avoiding use of narcotics and LEAD LOADER sedatives, limit anticholinergic medications when possible, frequent re-orientation, minimize use of restraints, open window shades during the day and close them at night -Would recommend the following medication changes/additions: Patient was willing to try an increased dose of Lexapro, will go up to 10 mg daily for mood/anxiety. -horse stud worker to provide patient with outpatient mental health/psychiatry resources for appropriate follow up upon discharge -Communicated plan to patient's nurse -Psychiatry will sign off at this time -Please contact with any questions. 01/18/25 14:18 01/18/25 14:20
[2025-01-19] MEDS ORDERED: ESCITALOPRAM 10 MG TAB PO SCH (09:00)
== END 2025-01-18 15:19 | disposition home or self-care (01) ==
LOC: EC 16:32 → 6NMEDSUR 20:01
PROVIDERS: ADMIT Internal Medicine; ATTEND Internal Medicine
DX: N39.0 Urinary tract infection, site not specified (principal); I25.10 Atherosclerotic heart disease of native coronary artery without angina pectoris; F32.9 Major depressive disorder, single episode, unspecified; F41.9 Anxiety disorder, unspecified; I10 Essential (primary) hypertension; E03.9 Hypothyroidism, unspecified; F17.200 Nicotine dependence, unspecified, uncomplicated; Z79.890 Hormone replacement therapy; Z79.899 Other long term (current) drug therapy
CPT/HCPCS: 96376; 96361 ×2; 96372; 96365; 99285; 36415; 94640 ×4; 94760 ×2; 93005; 97162; 97165; 80053 ×2; 82803; 83605; 83735; 84443; 84484; 85025 ×2; 85610; 85730; 81001; 87086; 87077; 87186; 71046; 70450; G0378 ×3; S4990 ×2; J1650; J0696 ×2